=== PATIENT | male | born 1980 | race Caucasian/White ===

== ENCOUNTER → 2016-11-25 | Outpatient (REF) | payer OTHER ==
[~2016-11-25] MED LIST: No Historical Meds; PRIL40CA
== END ==
LOC: M LAB REF 20:34
PROVIDERS: ATTEND Physician Assistant
DX: J02.9 Acute pharyngitis, unspecified (principal)

== ENCOUNTER 2017-01-08 05:46 | Emergency (ER) | payer OTHER, SELFPAY ==
--- NOTE | 2017-01-08 08:16 | EDDOCDS ---
Physician Documentation [facility] Name: Edis Avina Age: 37 yrs Sex: Male : 1980 Arrival Date: 01/08/2017 Time: 05:46 Bed 12 Private MD: Disposition: 01/08/17 07:24 Discharged to Home/Self Care. Impression: Abrasion of left hand, Abrasion of right hand. - Condition is Stable. - Discharge Instructions: Abrasion. - Prescriptions for Augmentin 875- 125 mg Oral Tablet - take 1 tablet by ORAL route every 12 hours for 5 days; 10 tablet. - Medication Reconciliation form. - Follow up: Private Physician; When: Call to arrange an appointment; Reason: Wound/Symptom Recheck, Recheck today's complaints, Worsening of conditions, Continuance of care. - Problem is new. - Symptoms have improved. Historical: - Allergies: Sulfa (Sulfonamide Antibiotics); - Home Meds: 1. none - PMHx: none; - PSHx: none; - Immunization history:: Last tetanus immunization: up to date. - Family history: Not pertinent. - Social history: Smoking status: Patient uses tobacco products, light tobacco smoker. No barriers to communication noted, The patient speaks fluent Austrian. - : The pt / caregiver states he / she is not on anticoagulants. Home medication list is obtained from the patient. - Exposure Risk Screening:: None identified. Vital Signs: 01/08 05:52 BP 174 / 100; Pulse 87; Resp 20; Temp 98.3(O); Pulse Ox 100% ; Weight 115.67 kg / tm5 255.01 lbs; Height 6 ft. 1 in. (185.42 cm); Pain 0/10; 07:39 BP 161 / 90; Pulse 86; Resp 18; Temp 97.9(TE); Pulse Ox 94% on R/A; Pain 0/10; dem1 05:52 Body Mass Index 33.64 (115.67 kg, 185.42 cm) tm5 MDM: 07:23 Wound Care ordered. cc10 07:35 Financial registration complete. mm15 08:05 [facility] Payment Agreement was scanned into [employer] and attached to record. mm15 Signatures: Keryr Randolph RN RN dls McGrath, Marlynn mm15 [place], [place], PA-C PA-C cc10 Gisela Peña,RN RN tm5 The chart was reviewed and I authenticate all verbal orders and agree with the evaluation and treatment provided.Attachments: 08:05 [facility] Payment Agreement mm15 MTDD
--- NOTE | 2017-01-08 08:16 | EDDOCDS ---
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 Adult Sepsis Screening: The patient does not have new or worsening altered mentation. Patient's respiratory rate is less than 22. Patient has a qSOFA score of 0- Negative Sepsis Screen. Suicide/Homicide risk assessment- the patient denies having any suicidal and/or homicidal ideations and does not present with any other emotional, behavioral or mental health complaints. 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 Transition of care: patient was not received from another setting of care. 05:48 Acuity: REINA Level 4 tm5 05:48 Method Of Arrival: Walkin/Carried/Asstd tm5 Triage Assessment: 05:52 General: Appears in no apparent distress, Behavior is appropriate for age, cooperative. tm5 Pain: Denies pain. Pt Declines HIV testing. The patient is triaged at the bedside. See Assessment in Nurses Notes section of ED record. Neurological: Level of Consciousness is awake, alert, Oriented to person, place, time. Respiratory: Airway is patent Respiratory effort is even, unlabored, Respiratory pattern is regular, symmetrical, Breath sounds are clear bilaterally. Derm: Skin is pink, warm & dry. Historical: - Allergies: Sulfa (Sulfonamide Antibiotics); - Home Meds: 1. none - PMHx: none; - PSHx: none; - Immunization history:: Last tetanus immunization: up to date. - Family history: Not pertinent. - Social history: Smoking status: Patient uses tobacco products, light tobacco smoker. No barriers to communication noted, The patient speaks fluent Albanian. - : The pt / caregiver states he / she is not on anticoagulants. Home medication list is obtained from the patient. - Exposure Risk Screening:: None identified. Screenin:54 Screening information is obtained from the patient. Fall risk: No risks identified. tm5 Assistance ADL's: requires no assistance with activities of daily living. Abuse/DV Screen: The patient / caregiver reports he/she is: not in a situation that causes fear, pain or injury. Nutritional screening: No deficits noted. Advance Directives: There is no active DNR order. home support is adequate. Assessment: 05:54 General: see triage assessment . tm5 05:56 Injury Description: Abrasion sustained to right hand and left hand is several very tm5 small abrasions noted to both hands, no active bleeding, pt washed his hands with soap & water as well. Vital Signs: 05:52 BP 174 / 100; Pulse 87; Resp 20; Temp 98.3(O); Pulse Ox 100% ; Weight 115.67 kg; Height tm5 6 ft. 1 in. (185.42 cm); Pain 0/10; 07:39 BP 161 / 90; Pulse 86; Resp 18; Temp 97.9(TE); Pulse Ox 94% on R/A; Pain 0/10; dem1 05:52 Body Mass Index 33.64 (115.67 kg, 185.42 cm) [facility] Vitals: 05:52 Log In Time: January 08, 2017 at 05:54. 5 ED Course: 05:48 Patient visited by Dianne Qureshi, Reaming Machine Tender. [facility] 05:48 Patient visited by Gisela Peña RN. tm5 05:48 Patient moved to [facility] 05:52 Triage Initiated tm5 05:54 Awaiting ED physician evaluation. 5 05:54 The patient / caregiver is instructed regarding the plan of care and ED course. 5 05:54 No IV's were initiated during this patient's visit. No procedures done that require 5 assistance. 07:20 [place] Acuna PA-C [facility] cc10 07:20 Matheus Ivan MD is Attending Physician. cc10 07:20 Patient visited by [place] Acuna PA-C. cc10 07:20 Patient visited by [place] Acuna PA-C. cc10 07:39 Patient visited by Rajan Chávez. dem1 08:05 [facility] Payment Agreement was scanned into [employer] and attached to record. mm15 08:15 Patient has correct armband on for positive identification. Bed in low position. Call dls light in reach. Order Results: There are currently no results for this order. Outcome: 07:24 Discharge ordered by Provider. cc10 07:35 Discharge Assessment: Patient awake, alert and oriented x 3. No cognitive and/or dls functional deficits noted. Patient verbalized understanding of disposition instructions. patient administered narcotics - no. The following High Risk Discharge criteria are identified: None. Discharged to home ambulatory. Condition: stable. Discharge instructions given to patient, Instructed on discharge instructions, follow up and referral plans. medication usage, Demonstrated understanding of instructions, medications, Pt was receptive of discharge instructions/ teaching. Prescriptions given X 1, Work note provided to patient. No special radiology studies were completed. Property sent home with patient. 08:15 Patient left the ED. dls Signatures: Kerry Randolph, RN RN dls Rjaan Chávez dem1 Cr Rhoades mm15 [place] Acuna, PA-C PA-C cc10 Dianne Qureshi, Reaming Machine Tender Unit Gisela Davis RN RN tm5 MYLENE
--- NOTE | 2017-01-10 09:16 | EDDOCDS ---
Physician Documentation [facility] Name: Edis Avina Age: 37 yrs Sex: Male : 1980 Arrival Date: 01/08/2017 Time: 05:46 Bed 12 Private MD: Disposition: 01/08/17 07:24 Discharged to Home/Self Care. Impression: Abrasion of left hand, Abrasion of right hand. - Condition is Stable. - Discharge Instructions: Abrasion. - Prescriptions for Augmentin 875- 125 mg Oral Tablet - take 1 tablet by ORAL route every 12 hours for 5 days; 10 tablet. - Medication Reconciliation form. - Follow up: Private Physician; When: Call to arrange an appointment; Reason: Wound/Symptom Recheck, Recheck today's complaints, Worsening of conditions, Continuance of care. - Problem is new. - Symptoms have improved. Historical: - Allergies: Sulfa (Sulfonamide Antibiotics); - Home Meds: 1. none - PMHx: none; - PSHx: none; - Immunization history:: Last tetanus immunization: up to date. - Family history: Not pertinent. - Social history: Smoking status: Patient uses tobacco products, light tobacco smoker. No barriers to communication noted, The patient speaks fluent South African. - : The pt / caregiver states he / she is not on anticoagulants. Home medication list is obtained from the patient. - Exposure Risk Screening:: None identified. Vital Signs: 01/08 05:52 BP 174 / 100; Pulse 87; Resp 20; Temp 98.3(O); Pulse Ox 100% ; Weight 115.67 kg / tm5 255.01 lbs; Height 6 ft. 1 in. (185.42 cm); Pain 0/10; 07:39 BP 161 / 90; Pulse 86; Resp 18; Temp 97.9(TE); Pulse Ox 94% on R/A; Pain 0/10; dem1 05:52 Body Mass Index 33.64 (115.67 kg, 185.42 cm) tm5 MDM: 07:23 Wound Care ordered. cc10 07:35 Financial registration complete. mm15 08:05 [facility] Payment Agreement was scanned into [email or web address] and attached to record. mm15 08:34 T-Sheet-- Draft Copy was scanned into [email or web address] and attached to record. [facility] Signatures: Kerry Randolph RN RN dls Cr Rhoades mm15 [place] Acuna PAJovaniC PA-C cc10 Chantale Sheriff Tonya, RN RN tm5 The chart was reviewed and I authenticate all verbal orders and agree with the evaluation and treatment provided.Attachments: 08:05 [facility] Payment Agreement mm15 08:34 T-Sheet-- Draft Copy [facility] Chart Complete MTDD
--- NOTE | 2017-01-10 09:16 | EDDOCDS ---
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 Adult Sepsis Screening: The patient does not have new or worsening altered mentation. Patient's respiratory rate is less than 22. Patient has a qSOFA score of 0- Negative Sepsis Screen. Suicide/Homicide risk assessment- the patient denies having any suicidal and/or homicidal ideations and does not present with any other emotional, behavioral or mental health complaints. 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 Transition of care: patient was not received from another setting of care. 05:48 Acuity: REINA Level 4 tm5 05:48 Method Of Arrival: Walkin/Carried/Asstd tm5 Triage Assessment: 05:52 General: Appears in no apparent distress, Behavior is appropriate for age, cooperative. tm5 Pain: Denies pain. Pt Declines HIV testing. The patient is triaged at the bedside. See Assessment in Nurses Notes section of ED record. Neurological: Level of Consciousness is awake, alert, Oriented to person, place, time. Respiratory: Airway is patent Respiratory effort is even, unlabored, Respiratory pattern is regular, symmetrical, Breath sounds are clear bilaterally. Derm: Skin is pink, warm & dry. Historical: - Allergies: Sulfa (Sulfonamide Antibiotics); - Home Meds: 1. none - PMHx: none; - PSHx: none; - Immunization history:: Last tetanus immunization: up to date. - Family history: Not pertinent. - Social history: Smoking status: Patient uses tobacco products, light tobacco smoker. No barriers to communication noted, The patient speaks fluent Romanian. - : The pt / caregiver states he / she is not on anticoagulants. Home medication list is obtained from the patient. - Exposure Risk Screening:: None identified. Screenin:54 Screening information is obtained from the patient. Fall risk: No risks identified. tm5 Assistance ADL's: requires no assistance with activities of daily living. Abuse/DV Screen: The patient / caregiver reports he/she is: not in a situation that causes fear, pain or injury. Nutritional screening: No deficits noted. Advance Directives: There is no active DNR order. home support is adequate. Assessment: 05:54 General: see triage assessment . tm5 05:56 Injury Description: Abrasion sustained to right hand and left hand is several very tm5 small abrasions noted to both hands, no active bleeding, pt washed his hands with soap & water as well. Vital Signs: 05:52 BP 174 / 100; Pulse 87; Resp 20; Temp 98.3(O); Pulse Ox 100% ; Weight 115.67 kg; Height tm5 6 ft. 1 in. (185.42 cm); Pain 0/10; 07:39 BP 161 / 90; Pulse 86; Resp 18; Temp 97.9(TE); Pulse Ox 94% on R/A; Pain 0/10; dem1 05:52 Body Mass Index 33.64 (115.67 kg, 185.42 cm) [facility] Vitals: 05:52 Log In Time: January 08, 2017 at 05:54. 5 ED Course: 05:48 Patient visited by Dianne Qureshi, Biodiesel Product Manager. [facility] 05:48 Patient visited by Gisela Peña RN. tm5 05:48 Patient moved to [facility] 05:52 Triage Initiated tm5 05:54 Awaiting ED physician evaluation. 5 05:54 The patient / caregiver is instructed regarding the plan of care and ED course. 5 05:54 No IV's were initiated during this patient's visit. No procedures done that require 5 assistance. 07:20 [place] [facility] cc[facility] 07:20 Matheus Ivan MD is Attending Physician. cc10 07:20 Patient visited by [place] Acuna PA-C. cc10 07:20 Patient visited by [place] Acuna PA-C. cc10 07:39 Patient visited by Rajan Chávez. dem1 08:05 [facility] Payment Agreement was scanned into [employer] and attached to record. mm15 08:15 Patient has correct armband on for positive identification. Bed in low position. Call dls light in reach. 08:34 T-Sheet-- Draft Copy was scanned into [employer] and attached to record. [facility] Order Results: There are currently no results for this order. Outcome: 07:24 Discharge ordered by Provider. cc10 07:35 Discharge Assessment: Patient awake, alert and oriented x 3. No cognitive and/or dls functional deficits noted. Patient verbalized understanding of disposition instructions. patient administered narcotics - no. The following High Risk Discharge criteria are identified: None. Discharged to home ambulatory. Condition: stable. Discharge instructions given to patient, Instructed on discharge instructions, follow up and referral plans. medication usage, Demonstrated understanding of instructions, medications, Pt was receptive of discharge instructions/ teaching. Prescriptions given X 1, Work note provided to patient. No special radiology studies were completed. Property sent home with patient. 08:15 Patient left the ED. dls Signatures: Kerry Randolph, RN RN Rajan Grant dem1 Cr Rhoades mm15 [place] Acuna, PA-C PA-C cc10 Dianne Qureshi, Biodiesel Product Manager Unit Chantale Quintanilla Tonya,RN RN tm5 Chart Complete MYLENE
--- NOTE | 2017-01-10 09:16 | EDDOCDS ---
Physician Documentation [facility] Name: Edis Avina Age: 37 yrs Sex: Male : 1980 Arrival Date: 01/08/2017 Time: 05:46 Bed 12 Private MD: Disposition: 01/08/17 07:24 Discharged to Home/Self Care. Impression: Abrasion of left hand, Abrasion of right hand. - Condition is Stable. - Discharge Instructions: Abrasion. - Prescriptions for Augmentin 875- 125 mg Oral Tablet - take 1 tablet by ORAL route every 12 hours for 5 days; 10 tablet. - Medication Reconciliation form. - Follow up: Private Physician; When: Call to arrange an appointment; Reason: Wound/Symptom Recheck, Recheck today's complaints, Worsening of conditions, Continuance of care. - Problem is new. - Symptoms have improved. Historical: - Allergies: Sulfa (Sulfonamide Antibiotics); - Home Meds: 1. none - PMHx: none; - PSHx: none; - Immunization history:: Last tetanus immunization: up to date. - Family history: Not pertinent. - Social history: Smoking status: Patient uses tobacco products, light tobacco smoker. No barriers to communication noted, The patient speaks fluent Kenyan. - : The pt / caregiver states he / she is not on anticoagulants. Home medication list is obtained from the patient. - Exposure Risk Screening:: None identified. Vital Signs: 01/08 05:52 BP 174 / 100; Pulse 87; Resp 20; Temp 98.3(O); Pulse Ox 100% ; Weight 115.67 kg / tm5 255.01 lbs; Height 6 ft. 1 in. (185.42 cm); Pain 0/10; 07:39 BP 161 / 90; Pulse 86; Resp 18; Temp 97.9(TE); Pulse Ox 94% on R/A; Pain 0/10; dem1 05:52 Body Mass Index 33.64 (115.67 kg, 185.42 cm) tm5 MDM: 07:23 Wound Care ordered. cc10 07:35 Financial registration complete. mm15 08:05 [facility] Payment Agreement was scanned into [employer] and attached to record. mm15 08:34 T-Sheet-- Draft Copy was scanned into [employer] and attached to record. [facility] Signatures: Kerry Randolph RN RN dls Cr Rhoades mm15 [place] Acuna PAJovaniC PA-C cc10 Chantale Sheriff Tonya, RN RN tm5 The chart was reviewed and I authenticate all verbal orders and agree with the evaluation and treatment provided.Attachments: 08:05 [facility] Payment Agreement mm15 08:34 T-Sheet-- Draft Copy [facility] Chart Complete MTDD
== END 2017-01-08 08:15 | disposition home or self-care (01) ==
LOC: M ED 05:46
DX: S60.511A Abrasion of right hand, initial encounter (principal); S60.512A Abrasion of left hand, initial encounter; X01.8XXA Other exposure to uncontrolled fire, not in building or structure, initial encounter; Y92.89 Other specified places as the place of occurrence of the external cause; Y93.89 Activity, other specified; Y99.0 Civilian activity done for income or pay; Z72.0 Tobacco use; Z88.2 Allergy status to sulfonamides

== ENCOUNTER → 2017-03-23 | Outpatient (CLI) | payer OTHER ==
--- NOTE | 2017-03-24 05:35 | REP ---
REASON: Pain after trauma. COMPARISON: None. FINDINGS: The joint spaces are symmetric and relatively well maintained. There is no evidence of acute fracture or destructive osseous lesion. IMPRESSION: Negative hand. Signed by Fabrice Hickman DO 03/24/2017 03:36 P
== END ==
LOC: M WUC 17:07
PROVIDERS: ATTEND Physician Assistant
DX: S61.402A Unspecified open wound of left hand, initial encounter (principal); X58.XXXA Exposure to other specified factors, initial encounter; Y92.89 Other specified places as the place of occurrence of the external cause; Y93.89 Activity, other specified; Y99.8 Other external cause status

== ENCOUNTER 2020-04-18 15:40 | Emergency (ER) | payer OTHER ==
[~2020-04-18] VITALS: Ht 185.4 cm; Wt 120.5 kg
[2020-04-18] MEDS ORDERED: ANTIFUNGAL (15:55)
[2020-04-18 16:30] LABS: BASO % 0.6 % (0.0-1.0); EOS # 0.1 10^3/uL (0.0-0.5); EOS % 2.1 % (0.0-3.0); HEMATOCRIT 48.9 % (42.0-52.0); HEMOGLOBIN 16.7 g/dl (13.5-17.5); LYMPH # 1.5 10^3/uL (1.5-5.0); LYMPH % 29.1 % (24.0-44.0); MEAN CORPUSCULAR HEMOGLOBIN 31.1 pg (27.0-33.0); MEAN CORPUSCULAR HGB CONC 34.2 g/dl (32.0-36.5); MEAN CORPUSCULAR VOLUME 91.1 fl (80.0-96.0); MONO # 0.4 10^3/uL (0.0-0.8); MONO % 8.1 % (0.0-5.0); NEUTROPHILS # 3.2 10^3/uL (1.5-8.5); NEUTROPHILS % 59.9 % (36.0-66.0); PLATELET COUNT, AUTOMATED 214 10^3/uL (150-450); RED BLOOD COUNT 5.37 10^6/uL (4.30-6.10); WHITE BLOOD COUNT 5.3 10^3/uL (4.0-10.0)
[2020-04-18 17:00] LABS: BLOOD UREA NITROGEN 15 MG/DL (7-18); CALCIUM LEVEL 8.6 MG/DL (8.5-10.1); CARBON DIOXIDE LEVEL 27 MEQ/L (21-32); CHLORIDE LEVEL 110 MEQ/L (98-107); CK-MB VALUE MASS 1.3 NG/ML (<3.6); CPK CREATINE PHOSPHOKINASE 120 U/L (39-308); CREATININE FOR GFR 0.82 MG/DL (0.70-1.30); GLOMERULAR FILTRATION RATE > 60.0 (>60); GLUCOSE, FASTING 89 MG/DL (70-100); MB/CK RELATIVE INDEX 1.08 (< OR =4); POTASSIUM SERUM 4.2 MEQ/L (3.5-5.1); SODIUM LEVEL 142 MEQ/L (136-145); TROPONIN I < 0.02 NG/ML (< 0.10)
[2020-04-18] MEDS ORDERED: ISOVUE-370 76% 100ML VIAL As Ordered ONE (17:34)
[2020-04-18] MEDS ORDERED: ACETAMINOPHEN TAB 650MG DOSE (2X325MG) PO ONE (18:15)
--- NOTE | 2020-04-18 18:25 | REPVR ---
PROCEDURE INFORMATION: Exam: CT Angiography Chest With Contrast Exam date and time: 04/18/2020 6:01 PM Age: 40 years old Clinical indication: Chest pain; Additional info: Left pleuritic chest pain TECHNIQUE: Imaging protocol: Computed tomographic angiography of the chest with intravenous contrast. 3D rendering: MIP and/or 3D reconstructed images were created by the technologist. Radiation optimization: All CT scans at this facility use at least one of these dose optimization techniques: automated exposure control; mA and/or kV adjustment per patient size (includes targeted exams where dose is matched to clinical indication); or iterative reconstruction. Contrast material: ISOVUE 370; Contrast volume: 75 ml; Contrast route: IV; COMPARISON: CR PORTABLE CHEST X-RAY 04/18/2020 4:15 PM FINDINGS: Pulmonary arteries: No evidence of pulmonary artery emboli. Aorta: No evidence of thoracic aortic aneurysm or dissection. Lungs: Unremarkable. No consolidation. No masses. Pleural space: Unremarkable. No pneumothorax. No pleural effusion. Heart: Unremarkable. No cardiomegaly. No pericardial effusion. Lymph nodes: Unremarkable. No enlarged lymph nodes. Stomach and bowel: There are postoperative changes of the stomach. Bones/joints: There are mild degenerative changes of the thoracic spine. No fracture or focal osseous lesion. . Soft tissues: Unremarkable. IMPRESSION: 1. No pulmonary emboli. 2. No acute findings. Electronically signed by: Booker Low On 04/18/2020 18:24:36 PM
[2020-04-18 18:46] VITALS: BP 124/68
--- NOTE | 2020-04-18 21:13 | ECGEPIP ---
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
--- NOTE | 2020-04-19 10:56 | REP ---
CHEST SINGLE VIEW: There is no evidence of acute infiltrate. No pleural effusion is seen. The heart is normal in size. The mediastinal silhouette is unremarkable. The visualized osseous structures are intact. IMPRESSION: No acute pulmonary disease. Electronically Signed by Geoff Milton MD 04/21/2020 10:21 P
== END 2020-04-18 18:48 | disposition home or self-care (01) ==
LOC: M ED 15:40
DX: R07.89 Other chest pain (principal); R06.00 Dyspnea, unspecified; Z20.89 Contact with and (suspected) exposure to other communicable diseases; Z88.1 Allergy status to other antibiotic agents; Z88.2 Allergy status to sulfonamides; Z88.8 Allergy status to other drugs, medicaments and biological substances
CPT/HCPCS: 36415; 71045; 71275; 80048; 82550; 82553; 84484; 85025; 87486; 87581; 87633; 87798; 93005; 93041; 94760; 99285; Q9967

== ENCOUNTER 2022-05-22 19:43 | Emergency (ER) | payer OTHER ==
[~2022-05-22] VITALS: Ht 185.4 cm; Wt 129.7 kg
[~2022-05-22 19:43] MED LIST changes: +ANTIFUNGAL
[2022-05-22 19:44] VITALS: BP 152/100
== END 2022-05-22 22:35 | disposition home or self-care (01) ==
LOC: M ED 19:43
DX: Z20.3 Contact with and (suspected) exposure to rabies (principal); Z88.1 Allergy status to other antibiotic agents; Z88.2 Allergy status to sulfonamides; Z88.8 Allergy status to other drugs, medicaments and biological substances

== ENCOUNTER → 2022-08-20 | Outpatient (CLI) | payer OTHER | LOC: M WUC 11:56 | PROVIDERS: ATTEND Internal Medicine | DX: R93.6 Abnormal findings on diagnostic imaging of limbs (principal); M79.672 Pain in left foot; G89.29 Other chronic pain ==

== ENCOUNTER → 2022-10-21 | Outpatient (CLI) | payer OTHER | LOC: M RAD 07:07 | PROVIDERS: ATTEND Orthopaedic Surgery | DX: M19.072 Primary osteoarthritis, left ankle and foot (principal) ==

== ENCOUNTER 2023-11-21 15:53 | Emergency (ER) | payer OTHER ==
[~2023-11-21] VITALS: Ht 185.4 cm; Wt 143.2 kg
[2023-11-21] MEDS ORDERED: KETO10TAB PO (21:24)
[2023-11-21 21:35] VITALS: BP 120/80; TEMP 96.8; O2SAT 98
== END 2023-11-21 21:45 | disposition home or self-care (01) ==
LOC: M ED 15:53
DX: S46.911A Strain of unspecified muscle, fascia and tendon at shoulder and upper arm level, right arm, initial encounter (principal); M75.31 Calcific tendinitis of right shoulder; X58.XXXA Exposure to other specified factors, initial encounter; Y92.84 Military training ground as the place of occurrence of the external cause; Y93.9 Activity, unspecified; Y99.1 Military activity; Z98.84 Bariatric surgery status; Z88.2 Allergy status to sulfonamides; Z88.8 Allergy status to other drugs, medicaments and biological substances

== ENCOUNTER → 2024-09-11 | Outpatient (REF) | payer OTHER ==
[~2024-09-11] MED LIST changes: +KETO10TAB PO
[2024-09-11 15:48] LABS: IRON (FE) 129 UG/DL (65-175); PERCENT SATURATION 35.2 % (19.7-50.0); PHOSPHORUS LEVEL 2.4 MG/DL (2.5-4.9); TOTAL IRON BINDING CAPACITY 366 UG/DL (250-425)
[2024-09-11 15:49] LABS: VITAMIN B12 LEVEL 649 PG/ML (211-911)
[2024-09-11 15:50] LABS: TOTAL 25(OH) VITAMIN D 22.8 NG/ML (20.0-100.0)
[2024-09-11 15:51] LABS: FERRITIN 30.5 NG/ML (10.5-307.3); FOLATE > 24.0 NG/ML (>5.4)
== END ==
LOC: M LAB REF 12:37
PROVIDERS: ATTEND Internal Medicine
DX: Z98.84 Bariatric surgery status (principal)

== ENCOUNTER 2024-12-20 20:34 | Emergency (ER) | payer OTHER ==
[~2024-12-20] VITALS: Ht 185.4 cm; Wt 147.8 kg
[2024-12-20 21:12] LABS: BASO % 0.4 % (0.0-1.0); EOS # 0.1 10^3/uL (0.0-0.5); EOS % 0.9 % (0.0-3.0); HEMATOCRIT 51.8 % (42.0-52.0); LYMPH # 1.8 10^3/uL (1.5-5.0); LYMPH % 21.7 % (24.0-44.0); MEAN CORPUSCULAR HEMOGLOBIN 30.8 pg (27.0-33.0); MEAN CORPUSCULAR HGB CONC 34.7 g/dl (32.0-36.5); MEAN CORPUSCULAR VOLUME 88.5 fl (80.0-96.0); MONO # 0.6 10^3/uL (0.0-0.8); MONO % 6.8 % (2.0-8.0); NEUTROPHILS # 5.7 10^3/uL (1.5-8.5); PLATELET COUNT, AUTOMATED 243 10^3/uL (150-450); RED BLOOD COUNT 5.85 10^6/uL (4.30-6.10); WHITE BLOOD COUNT 8.1 10^3/uL (4.0-10.0)
[2024-12-20 21:34] LABS: ALBUMIN 3.8 G/DL (3.2-5.2); ALKALINE PHOSPHATASE 87 U/L (40-129); ALT/SGPT 60 U/L (7.0-40); AST/SGOT 32 U/L (<34); BILIRUBIN,TOTAL 0.5 MG/DL (0.3-1.2); BLOOD UREA NITROGEN 14 MG/DL (9-23); CALCIUM LEVEL 9.4 MG/DL (8.5-10.1); CARBON DIOXIDE LEVEL 26 MMOL/L (20-31); CHLORIDE LEVEL 109 MMOL/L (98-107); CREATININE FOR GFR 0.81 MG/DL (0.70-1.30); GLOMERULAR FILTRATION RATE > 60.0 (>60); GLUCOSE, FASTING 97 MG/DL (60-100); POTASSIUM SERUM 4.7 MMOL/L (3.5-5.1); SODIUM LEVEL 143 MMOL/L (136-145); TOTAL PROTEIN 7.1 G/DL (5.7-8.2)
[2024-12-20 21:36] LABS: HEPATITIS B SURFACE ANTIBODY POSITIVE (POSITIVE)
[2024-12-20] MEDS ORDERED: EXPOSURE KIT-ADULT 7 DAY SUPPLY PO ONE (21:40)
[2024-12-20 21:48] LABS: HEPATITIS B SURFACE ANTIGEN NEGATIVE (NEGATIVE)
[2024-12-20] MEDS ORDERED: EMTR1TAB16 PO (21:48)
[2024-12-20] MEDS ORDERED: ONDA-282 PO (21:48)
[2024-12-20] MEDS ORDERED: RALT40TA PO (21:48)
[2024-12-20 22:01] LABS: HIV 1&2 SCREEN NEGATIVE (NEGATIVE)
[2024-12-20] MEDS: BOOSTRIX VACCINE (TETANUS/DIPHTH/ACEL. PERTUSSIS) 0.5ML SYR IM.IMMUN ONE (22:08)
[2024-12-20] MEDS: RALTEGRAVIR 400 MG TAB (ISENTRESS) PO ONE (22:09)
[2024-12-20] MEDS: EMTRICITABINE/TENOFOVIR 200MG/300MG TABLET PO ONE (22:09)
[2024-12-20 22:10] VITALS: BP 144/92; TEMP 97.2; O2SAT 96
[2024-12-20 22:10] LABS: HEPATITIS C VIRUS ABY INDEX 0.13 INDEX (<0.8)
[2024-12-21] MEDS ORDERED: EMTRICITABINE/TENOFOVIR 200MG/300MG TABLET PO SCH
[2024-12-21] MEDS ORDERED: RALTEGRAVIR 400 MG TAB (ISENTRESS) PO SCH
== END 2024-12-20 22:24 | disposition home or self-care (01) ==
LOC: M ED 20:34
DX: Z77.21 Contact with and (suspected) exposure to potentially hazardous body fluids (principal); Y99.0 Civilian activity done for income or pay; Y93.89 Activity, other specified; Y92.9 Unspecified place or not applicable; X58.XXXA Exposure to other specified factors, initial encounter; Z88.2 Allergy status to sulfonamides; Z23 Encounter for immunization

== ENCOUNTER → 2025-01-18 | Outpatient (CLI) | payer OTHER ==
[~2025-01-18] MED LIST changes: +EMTR1TAB16 PO; +ONDA-282 PO; +RALT40TA PO
[2025-01-18 14:39] LABS: BASO # 0.1 10^3/uL (0.0-0.2); BASO % 0.7 % (0.0-1.0); EOS # 0.2 10^3/uL (0.0-0.5); EOS % 2.2 % (0.0-3.0); HEMOGLOBIN 18.1 g/dl (13.5-17.5); LYMPH # 2.1 10^3/uL (1.5-5.0); LYMPH % 29.9 % (24.0-44.0); MEAN CORPUSCULAR HEMOGLOBIN 30.1 pg (27.0-33.0); MEAN CORPUSCULAR HGB CONC 33.5 g/dl (32.0-36.5); MEAN CORPUSCULAR VOLUME 89.9 fl (80.0-96.0); MONO # 0.6 10^3/uL (0.0-0.8); MONO % 8.9 % (2.0-8.0); PLATELET COUNT, AUTOMATED 249 10^3/uL (150-450); RED BLOOD COUNT 6.01 10^6/uL (4.30-6.10); WHITE BLOOD COUNT 6.9 10^3/uL (4.0-10.0)
[2025-01-18 15:08] LABS: ALBUMIN 3.8 G/DL (3.2-5.2); ALKALINE PHOSPHATASE 89 U/L (40-129); ALT/SGPT 79 U/L (7.0-40); AST/SGOT 39 U/L (<34); BILIRUBIN,TOTAL 0.6 MG/DL (0.3-1.2); BLOOD UREA NITROGEN 13 MG/DL (9-23); CALCIUM LEVEL 8.9 MG/DL (8.5-10.1); CARBON DIOXIDE LEVEL 26 MMOL/L (20-31); CHLORIDE LEVEL 107 MMOL/L (98-107); CREATININE FOR GFR 0.83 MG/DL (0.70-1.30); GLOMERULAR FILTRATION RATE > 60.0 (>60); GLUCOSE, FASTING 130 MG/DL (60-100); POTASSIUM SERUM 3.4 MMOL/L (3.5-5.1); SODIUM LEVEL 141 MMOL/L (136-145); TOTAL PROTEIN 6.9 G/DL (5.7-8.2)
[2025-01-18 15:40] LABS: HIV 1&2 SCREEN NEGATIVE (NEGATIVE)
[2025-01-18 15:48] LABS: HEPATITIS C VIRUS ABY INDEX 0.03 INDEX (<0.8)
[2025-01-19 14:02] LABS: HEPATITIS B CORE ANTIBODY IGG NON-REACTIVE (NON-REACTIVE)
[2025-01-21 10:23] LABS: HCV RNA QUANTITATION <15 NOT DETECTED IU/mL (NOT DETECTED); HCV RNA log10 <1.18 NOT DETECTED Log IU/mL (NOT DETECTED)
== END ==
LOC: M PLALAB 10:11
PROVIDERS: ATTEND Internal Medicine Infectious Disease
DX: Z77.21 Contact with and (suspected) exposure to potentially hazardous body fluids (principal)

== ENCOUNTER → 2025-03-26 | Outpatient (CLI) | payer OTHER ==
[2025-03-26 11:22] LABS: ALBUMIN 3.7 G/DL (3.2-5.2); ALKALINE PHOSPHATASE 87 U/L (40-129); ALT/SGPT 70 U/L (7.0-40); AST/SGOT 30 U/L (<34); BILIRUBIN,DIRECT 0.2 MG/DL (<0.4); BILIRUBIN,TOTAL 0.5 MG/DL (0.3-1.2); TOTAL PROTEIN 6.5 G/DL (5.7-8.2)
[2025-03-26 12:26] LABS: HIV 1&2 SCREEN NEGATIVE (NEGATIVE)
[2025-03-26 12:34] LABS: HEPATITIS C VIRUS ABY INDEX 0.07 INDEX (<0.8)
== END ==
LOC: M PLALAB 07:16
PROVIDERS: ATTEND Internal Medicine Infectious Disease
DX: Z77.21 Contact with and (suspected) exposure to potentially hazardous body fluids (principal)

== ENCOUNTER → 2025-06-21 | Outpatient (REF) | payer OTHER | LOC: M LAB REF 11:53 | PROVIDERS: ATTEND Internal Medicine | DX: K75.81 Nonalcoholic steatohepatitis (NASH) (principal); R74.01 Elevation of levels of liver transaminase levels ==